=== PATIENT | female | born 1955 | race Caucasian/White ===

== ENCOUNTER 2025-03-26 17:27 | Emergency (ER) | payer OTHER ==
[~2025-03-26] VITALS: Ht 154.9 cm; Wt 63.0 kg
[2025-03-26 18:07] VITALS: TEMP 36.6; O2SAT 100
[2025-03-26] MEDS: KETOROLAC 30MG/ML VIAL IM ONE (20:16)
[2025-03-26] MEDS ORDERED: T3 PO (22:10)
[2025-03-26] MEDS ORDERED: IBUP-1455 MT (22:10)
[2025-03-26 22:52] VITALS: BP 157/65; PULSE 65; RESP 20; O2SAT 99
== END 2025-03-26 23:11 | disposition home or self-care (01) ==
LOC: ER 18:02
DX: S82.034A Nondisplaced transverse fracture of right patella, initial encounter for closed fracture (principal); Z79.899 Other long term (current) drug therapy; Z98.890 Other specified postprocedural states; Z85.3 Personal history of malignant neoplasm of breast; W01.0XXA Fall on same level from slipping, tripping and stumbling without subsequent striking against object, initial encounter; Y93.01 Activity, walking, marching and hiking; Y92.89 Other specified places as the place of occurrence of the external cause; Y99.8 Other external cause status
CPT/HCPCS: 73564; 29505; 96372; 99283; J1885; Z7610